=== PATIENT | male | born 1955 | race Two or more races ===

== ENCOUNTER 2018-11-01 16:54 | Emergency (ER) | payer MEDICAID ==
[~2018-11-01] VITALS: Ht 180.3 cm; Wt 111.1 kg
[~2018-11-01 16:54] MED LIST: ASPI81CH43 PO; ATOR20TA50 PO; DOC100C PO; FURO20TA3 PO; GLY25T PO; HYD25T PO; MET25T PO; NITR0.4D10 TD; POT20T PO
[2018-11-01 17:21] VITALS: BP 141/89
[2018-11-01 18:19] LABS: Basophils # (auto) 0.1 uL; Basophils % (auto) 0.8 % (0.0-2.0); Eosinophils # (auto) 0.1 uL; Eosinophils % (auto) 0.9 % (0.0-7.0); Hematocrit 43.3 % (41.0-53.0); Hemoglobin 14.8 g/dL (13.5-17.5); Lymphocytes # (auto) 1.8 uL; Lymphocytes % (auto) 17.9 % (10.0-50.0); Mean Corpuscular Hemoglobin 31.2 pg (28.0-32.0); Mean Corpuscular Hgb Conc. 34.2 g/dL (32.0-36.0); Mean Corpuscular Volume 91.1 fL (80.0-100.0); Monocytes # (auto) 0.8 uL; Monocytes % (auto) 7.5 % (0.0-12.0); Neutrophils # (auto) 7.4 uL; Neutrophils % (auto) 72.9 % (37.0-80.0); Platelet Count (auto) 236 10^3/uL (140-450); Red Blood Cells 4.75 10^6/uL (4.5-5.90); Red Cell Distribution Width 13.9 % (11.8-14.3); White Blood Cell 10.2 10^3/uL (4.4-10.8)
[2018-11-01 18:21] LABS: Partial Thromboplastin Time 25.9 sec (23.78-33.04); Prothrombin Time 10.7 sec (9.27-12.13)
[2018-11-01 18:28] LABS: Albumin 3.8 g/dL (3.4-5.0); Anion Gap 5 (5-15); Blood Urea Nitrogen 14 mg/dL (7-18); Calcium 8.6 mg/dL (8.5-10.1); Carbon Dioxide 26 mmol/L (21-32); Chloride 110 mmol/L (98-107); Glucose 108 mg/dL (74-106); Potassium 3.4 mmol/L (3.5-5.1); Sodium 141 mmol/L (136-145)
[2018-11-01 18:34] LABS: Alanine Aminotransferase 20 U/L (16-61); Alkaline Phosphatase 61 U/L (45-117); Aspartate Aminotransferase 22 U/L (15-37); BUN/Creatinine Ratio 16.5; Bilirubin, Total 0.9 mg/dL (0.2-1.0); GFR African American 117 mL/min; GFR Non-African American 97 mL/min; Total Protein 7.3 g/dL (6.4-8.2)
== END 2018-11-01 23:32 | disposition left against medical advice (07) ==
LOC: EDBD 16:54 → ER 16:54
DX: R07.2 Precordial pain (principal); I10 Essential (primary) hypertension; E78.00 Pure hypercholesterolemia, unspecified; I25.810 Atherosclerosis of coronary artery bypass graft(s) without angina pectoris; Z87.442 Personal history of urinary calculi; Z79.899 Other long term (current) drug therapy
CPT/HCPCS: 36415; 71045; 80053; 83735; 83880; 84443; 84484; 85025; 85610; 85730; 93005; 94761

== ENCOUNTER 2023-09-01 10:44 | Inpatient (IN) | payer BC, MEDICAID ==
[~2023-09-01] VITALS: Ht 177.8 cm; Wt 118.5 kg
[~2023-09-01 10:44] MED LIST changes: -GLY25T PO; +GLYB2.5T9 PO; -NITR0.4D10 TD; +NITR0.4D5 TD
[2023-09-01] MEDS ORDERED: PANTOPRAZOLE 40 MG/10 ML VIAL INJ IV ONE (11:15)
[2023-09-01] MEDS ORDERED: SODIUM CHLORIDE 0.9% 1,000 ML IVB ONE (11:15)
[2023-09-01 11:40] LABS: Basophils # (auto) 0.1 10 ^3/uL (0-0.2); Eosinophils # (auto) 0.1 10 ^3/uL (0-0.8); Eosinophils % (auto) 0.6 % (0.0-7.0); Hematocrit 23.6 % (41.0-53.0); Hemoglobin 7.8 g/dL (13.5-17.5); Lymphocytes # (auto) 1.7 10 ^3/uL (0.4-5.4); Mean Corpuscular Hgb Conc. 32.9 g/dL (32.0-36.0); Monocytes # (auto) 0.5 10 ^3/uL (0-1.3); Monocytes % (auto) 3.9 % (0.0-12.0)
[2023-09-01 11:41] LABS: Basophils % (auto) 0.7 % (0.0-2.0); Lymphocytes % (auto) 12.9 % (10.0-50.0); Mean Corpuscular Hemoglobin 31.5 pg (28.0-32.0); Mean Corpuscular Volume 95.7 fL (80.0-100.0); Neutrophils # (auto) 10.9 10 ^3/uL (1.6-8.6); Neutrophils % (auto) 81.9 % (37.0-80.0); Red Blood Cells 2.47 10^6/uL (4.5-5.90); Red Cell Distribution Width 14.7 % (11.8-14.3); White Blood Cell 13.3 10^3/uL (4.4-10.8)
[2023-09-01 11:58] LABS: INR 1.05 (0.9-1.15); Partial Thromboplastin Time 21.6 SEC (24.5-34.5)
[2023-09-01 12:02] LABS: Alanine Aminotransferase 15 U/L (7-40); Albumin 3.6 g/dL (3.2-4.8); Alkaline Phosphatase 49 U/L (46-116); Anion Gap 10 (5-15); Aspartate Aminotransferase 17 U/L (13-40); BUN/Creatinine Ratio 36.2 (10.0-20.0); Blood Urea Nitrogen 34 mg/dL (9-23); Calcium 8.2 mg/dL (8.7-10.4); Carbon Dioxide 20 mmol/L (20-30); Chloride 111 mmol/L (98-107); Glucose 163 mg/dL (74-106); Magnesium 1.9 mg/dL (1.6-2.6); Potassium 4.2 mmol/L (3.5-5.1); Sodium 141 mmol/L (136-145)
[2023-09-01 12:03] LABS: Bilirubin, Total 0.5 mg/dL (0.2-1.0); Total Protein 5.3 g/dL (5.7-8.2)
[2023-09-01 12:06] LABS: Lactic Acid w/Reflex 3.3 mmol/L (0.4-2.0)
[2023-09-01] MEDS ORDERED: IOHEXOL 300 MG/ML 100ML BOTTLE IJ ONE (12:52)
[2023-09-01] MEDS ORDERED: PANTOPRAZOLE 40mg/50ML NS AE 50 ML IV ONE (13:00)
[2023-09-01 13:24] LABS: Urine Bacteria NONE SEEN /hpf (None Seen); Urine Blood Negative /uL (Negative); Urine Clarity Clear (Clear); Urine Hyaline Cast MANY /lpf (0 - 2); Urine Mucus FEW (None Seen); Urine Protein, UAD Negative (Negative); Urine Specific Gravity 1.018 (1.001-1.035); Urine Urobilinogen Normal (Negative); Urine WBC 2 /hpf (0 - 3)
[2023-09-01 13:31] LABS: Urine Color STRAW (Yellow)
[2023-09-01 15:18] VITALS: BP 102/68; PULSE 93; RESP 17; TEMP 98.6
[2023-09-01 15:33] VITALS: BP 103/67; PULSE 92; RESP 15; TEMP 98.6
[2023-09-01 16:30] VITALS: BP 108/63; PULSE 86; RESP 16; TEMP 98.5
[2023-09-01] MEDS ORDERED: ONDANSETRON HCL 4 MG/2 ML VIAL IV PRN (17:00)
[2023-09-01] MEDS: SODIUM CHLORIDE 0.9% 1,000 ML IV SCH (17:00)
[2023-09-01] MEDS ORDERED: HYDROcodone-ACET 5/325MG TAB PO PRN (17:00)
[2023-09-01] MEDS ORDERED: ACETAMINOPHEN 325 MG TAB PO PRN (17:00)
[2023-09-01] MEDS ORDERED: NITROGLYCERIN 0.4 MG SL TAB SL PRN (17:00)
[2023-09-01] MEDS ORDERED: MORPHINE SULFATE INJ 2 MG/ml SYRG IV PRN ×2 (17:00)
[2023-09-01 18:02] VITALS: BP 115/60; PULSE 78; RESP 12; TEMP 98.6
[2023-09-01] MEDS: PANTOPRAZOLE 40mg/50ML NS AE 50 ML IV SCH (19:50)
[2023-09-01 21:45] VITALS: RESP 16; O2SAT 96
[2023-09-02] VITALS (7 sets, daily range): BP systolic 102–119; BP diastolic 58–65; PULSE 68–91; RESP 16–23; TEMP 98–98.5; O2SAT 93–98
[2023-09-02] MEDS: PANTOPRAZOLE 40mg/50ML NS AE 50 ML IV SCH ×5 (02:34→20:18)
[2023-09-02] MEDS: SODIUM CHLORIDE 0.9% 1,000 ML IV SCH ×4 (06:10→21:26)
[2023-09-02 06:58] LABS: Basophils # (auto) 0.1 10 ^3/uL (0-0.2); Basophils % (auto) 0.9 % (0.0-2.0); Eosinophils # (auto) 0.1 10 ^3/uL (0-0.8); Eosinophils % (auto) 1.5 % (0.0-7.0); Hematocrit 25.7 % (41.0-53.0); Hemoglobin 8.7 g/dL (13.5-17.5); Lymphocytes # (auto) 2.3 10 ^3/uL (0.4-5.4); Lymphocytes % (auto) 25.5 % (10.0-50.0); Mean Corpuscular Hemoglobin 31.7 pg (28.0-32.0); Mean Corpuscular Hgb Conc. 33.9 g/dL (32.0-36.0); Mean Corpuscular Volume 93.5 fL (80.0-100.0); Monocytes # (auto) 0.5 10 ^3/uL (0-1.3); Monocytes % (auto) 5.5 % (0.0-12.0); Neutrophils # (auto) 6.1 10 ^3/uL (1.6-8.6); Neutrophils % (auto) 66.6 % (37.0-80.0); Nucleated Red Blood Cells % 0.1 %; Red Blood Cells 2.75 10^6/uL (4.5-5.90); Red Cell Distribution Width 15.3 % (11.8-14.3); White Blood Cell 9.2 10^3/uL (4.4-10.8)
[2023-09-02 07:53] LABS: Alanine Aminotransferase 13 U/L (7-40); Alkaline Phosphatase 50 U/L (46-116); Anion Gap 8 (5-15); BUN/Creatinine Ratio 16.7 (10.0-20.0); Blood Urea Nitrogen 13 mg/dL (9-23); Calcium 8.3 mg/dL (8.5-10.1); Carbon Dioxide 21 mmol/L (20-30); Chloride 113 mmol/L (98-107); Glucose 116 mg/dL (74-106); Potassium 3.9 mmol/L (3.5-5.1); Sodium 142 mmol/L (136-145)
[2023-09-02 07:55] LABS: Albumin 3.6 g/dL (3.2-4.8); Aspartate Aminotransferase 18 U/L (13-40); Bilirubin, Total 0.5 mg/dL (0.2-1.0); Total Protein 5.6 g/dL (5.7-8.2)
[2023-09-02] MEDS ORDERED: SODIUM CHLORIDE LOCK 10 ML ONE (09:17)
[2023-09-02] MEDS ORDERED: LIDOCAINE VISCOUS 2% 15ML UD ONE (09:17)
[2023-09-02] MEDS ORDERED: diphenhdrAMINE HCL 50 MG/1 ML VL ONE (09:18)
[2023-09-02] MEDS: fentaNYL CITRATE 100 MCG/2 ML VL ONE ×3 (10:49→11:02)
[2023-09-02] MEDS: MIDAZOLAM HCL 5 MG/ML-1ML VIAL ONE ×3 (10:49→11:02)
[2023-09-02] MEDS: SUCRALFATE 1 GM/10 ML ORAL SUSP PO SCH ×2 (17:04→21:20)
[2023-09-03] VITALS (7 sets, daily range): BP systolic 110–137; BP diastolic 63–78; PULSE 67–93; RESP 16–20; TEMP 97.7–98.5; O2SAT 94–97
[2023-09-03] MEDS: PANTOPRAZOLE 40mg/50ML NS AE 50 ML IV SCH ×6 (01:17→22:19)
[2023-09-03 05:48] LABS: Basophils # (auto) 0.1 10 ^3/uL (0-0.2); Hemoglobin 8.1 g/dL (13.5-17.5); Lymphocytes # (auto) 1.6 10 ^3/uL (0.4-5.4); Monocytes # (auto) 0.5 10 ^3/uL (0-1.3); Neutrophils # (auto) 5.8 10 ^3/uL (1.6-8.6)
[2023-09-03 05:50] LABS: Anion Gap 6 (5-15); Basophils % (auto) 0.9 % (0.0-2.0); Carbon Dioxide 23 mmol/L (20-30); Chloride 114 mmol/L (98-107); Eosinophils # (auto) 0.3 10 ^3/uL (0-0.8); Lymphocytes % (auto) 19.3 % (10.0-50.0); Mean Corpuscular Hemoglobin 32.1 pg (28.0-32.0); Mean Corpuscular Hgb Conc. 33.7 g/dL (32.0-36.0); Mean Corpuscular Volume 95.3 fL (80.0-100.0); Monocytes % (auto) 6.4 % (0.0-12.0); Neutrophils % (auto) 70.4 % (37.0-80.0); Nucleated Red Blood Cells % 0.2 %; Potassium 3.9 mmol/L (3.5-5.1); Red Blood Cells 2.52 10^6/uL (4.5-5.90); Red Cell Distribution Width 15.4 % (11.8-14.3); Sodium 143 mmol/L (136-145); White Blood Cell 8.3 10^3/uL (4.4-10.8)
[2023-09-03 05:56] LABS: Glucose 103 mg/dL (74-106)
[2023-09-03 05:59] LABS: Blood Urea Nitrogen < 5 mg/dL (9-23)
[2023-09-03] MEDS: SUCRALFATE 1 GM/10 ML ORAL SUSP PO SCH ×4 (06:09→22:07)
[2023-09-03] MEDS: SODIUM CHLORIDE 0.9% 1,000 ML IV SCH ×2 (06:09→19:26)
[2023-09-03] MEDS: HYDROcodone-ACET 10/325MG TAB PO PRN (16:35)
[2023-09-03] MEDS: FUROSEMIDE 20 MG TAB PO SCH (18:00)
[2023-09-03] MEDS: hydrALAZINE HCL 25 MG TAB PO SCH (18:00)
[2023-09-03] MEDS ORDERED: ATORVASTATIN 20 MG TAB PO SCH (22:00)
[2023-09-03] MEDS: METOPROLOL TARTRATE 25 MG TAB PO SCH (22:09)
[2023-09-04] MEDS: PANTOPRAZOLE 40mg/50ML NS AE 50 ML IV SCH ×4 (04:09→15:00)
[2023-09-04] MEDS: SODIUM CHLORIDE 0.9% 1,000 ML IV SCH ×2 (04:13→11:40)
[2023-09-04] MEDS: FUROSEMIDE 20 MG TAB PO SCH (05:35)
[2023-09-04] MEDS: hydrALAZINE HCL 25 MG TAB PO SCH ×3 (05:35→12:00)
[2023-09-04] MEDS: METOPROLOL TARTRATE 25 MG TAB PO SCH ×2 (05:36→13:37)
[2023-09-04 06:19] LABS: Basophils # (auto) 0.1 10 ^3/uL (0-0.2); Basophils % (auto) 1.2 % (0.0-2.0); Eosinophils # (auto) 0.3 10 ^3/uL (0-0.8); Eosinophils % (auto) 3.5 % (0.0-7.0); Hematocrit 26.1 % (41.0-53.0); Hemoglobin 8.6 g/dL (13.5-17.5); Lymphocytes # (auto) 1.8 10 ^3/uL (0.4-5.4); Lymphocytes % (auto) 21.5 % (10.0-50.0); Mean Corpuscular Hemoglobin 31.6 pg (28.0-32.0); Mean Corpuscular Hgb Conc. 33.1 g/dL (32.0-36.0); Mean Corpuscular Volume 95.6 fL (80.0-100.0); Monocytes # (auto) 0.6 10 ^3/uL (0-1.3); Monocytes % (auto) 7.3 % (0.0-12.0); Neutrophils # (auto) 5.5 10 ^3/uL (1.6-8.6); Neutrophils % (auto) 66.5 % (37.0-80.0); Nucleated Red Blood Cells % 0.1 %; Red Blood Cells 2.73 10^6/uL (4.5-5.90); Red Cell Distribution Width 15.2 % (11.8-14.3); White Blood Cell 8.3 10^3/uL (4.4-10.8)
[2023-09-04] MEDS: SUCRALFATE 1 GM/10 ML ORAL SUSP PO SCH ×3 (06:21→16:26)
[2023-09-04 08:00] VITALS: PULSE 61
[2023-09-04 09:00] VITALS: BP 125/72; PULSE 64; RESP 16; TEMP 98.1; O2SAT 97
[2023-09-04] MEDS ORDERED: ASPirin 81 mg TAB PO SCH (10:00)
[2023-09-04 13:00] VITALS: BP 126/68; PULSE 70; RESP 18; TEMP 98; O2SAT 96
[2023-09-04] MEDS ORDERED: PANT40TA2 PO (16:24)
[2023-09-04] MEDS ORDERED: SUCR1SUS26 PO (16:24)
[2023-09-04] MEDS: HYDROcodone-ACET 10/325MG TAB PO PRN (16:26)
== END 2023-09-04 17:34 | disposition home or self-care (01) | DRG 378 ==
LOC: ER 10:44 → TELE 16:57 → TELE-WESTW 21:40
PROVIDERS: ADMIT Internal Medicine; ATTEND Internal Medicine
PROC: 30233N1 Transfusion of Nonautologous Red Blood Cells into Peripheral Vein, Percutaneous Approach (ICD-10-PCS; 2023-09-01)
PROC: 0DB58ZX Excision of Esophagus, Via Natural or Artificial Opening Endoscopic, Diagnostic (ICD-10-PCS; 2023-09-02)
PROC: 0DB68ZX Excision of Stomach, Via Natural or Artificial Opening Endoscopic, Diagnostic (ICD-10-PCS; principal; 2023-09-02 10:44)
DX: K27.4 Chronic or unspecified peptic ulcer, site unspecified, with hemorrhage (principal); D62 Acute posthemorrhagic anemia; E87.20 Acidosis, unspecified; I10 Essential (primary) hypertension; K20.90 Esophagitis, unspecified without bleeding; K29.80 Duodenitis without bleeding; K29.70 Gastritis, unspecified, without bleeding; I95.9 Hypotension, unspecified; E11.9 Type 2 diabetes mellitus without complications; G89.29 Other chronic pain; I25.10 Atherosclerotic heart disease of native coronary artery without angina pectoris; Z95.1 Presence of aortocoronary bypass graft; Z79.1 Long term (current) use of non-steroidal anti-inflammatories (NSAID); Z79.82 Long term (current) use of aspirin; Z82.49 Family history of ischemic heart disease and other diseases of the circulatory system; Z87.19 Personal history of other diseases of the digestive system; Z87.442 Personal history of urinary calculi
CPT/HCPCS: 36415; 36430; 43239; 71045; 74177; 80048; 80053; 81001; 82270; 83605; 83690; 83735; 85025; 85610; 85730; 86850; 86900; 86901; 86920; 93005; C9113; G0378; J2250